=== PATIENT | female | born 1950 | race Caucasian/White ===

== ENCOUNTER 2019-12-02 13:41 | Emergency (ER) | payer OTHER ==
[~2019-12-02] VITALS: Ht 160 cm; Wt 81.4 kg
[2019-12-02 13:43] VITALS: BP 149/92
[2019-12-02] MEDS ORDERED: LOSA1TAB36 PO (15:23)
[2019-12-02] MEDS ORDERED: ALBU18HF2 INH (15:23)
[2019-12-02] MEDS ORDERED: AMOX500C2 PO (15:23)
== END 2019-12-02 15:44 | disposition home or self-care (01) ==
LOC: ER 13:42
DX: J32.9 Chronic sinusitis, unspecified (principal); Z88.0 Allergy status to penicillin; Z88.2 Allergy status to sulfonamides; Z79.899 Other long term (current) drug therapy
CPT/HCPCS: 71045; 99283